=== PATIENT | male | born 1995 | race Caucasian/White ===

== ENCOUNTER 2016-04-25 06:20 | Emergency (ER) | payer OTHER ==
[2016-04-25 07:29] VITALS: BP 138/81
== END 2016-04-25 07:29 | disposition home or self-care (01) ==
LOC: ED 06:20
DX: S41.152A Open bite of left upper arm, initial encounter (principal); S41.151A Open bite of right upper arm, initial encounter; S61.051A Open bite of right thumb without damage to nail, initial encounter; W55.01XA Bitten by cat, initial encounter; Y93.89 Activity, other specified; Y99.8 Other external cause status; Y92.89 Other specified places as the place of occurrence of the external cause; Z88.0 Allergy status to penicillin
CPT/HCPCS: J3490